=== PATIENT | female | born 1980 | race Caucasian/White ===

== ENCOUNTER 2017-05-16 00:19 | Emergency (ER) | payer OTHER ==
[2017-05-16 00:25] VITALS: RESP 18
[2017-05-16] MEDS ORDERED: IPRATROPIUM-ALBUTEROL 3 ML NEB INHALATION STA (00:38)
--- NOTE | 2017-05-16 00:59 | ED ---
URI HPI - General Chief Complaint: Upper Respiratory Infection Stated Complaint: sore throat Time Seen by Provider: 05/16/17 00:28 Source: patient Mode of arrival: ambulatory Limitations: no limitations - History of Present Illness Initial Comments: Patient is a 36-year-old female presenting to the emergency department with chief complaint of sore throat 4 days. MD Complaint: sore throat Onset/Timin -: days(s) Severity: moderate Severity scale (1-10): 6 Quality: sharp Consistency: intermittent Improves With: nothing Worsens With: nothing Context: other (Recent yard work) Associated Symptoms: headache, nasal congestion, cough, hoarseness Treatments Prior to Arrival: "cold medicine" - Related Data Previous Rx's Medication Instructions Recorded Amoxic-Pot Clav 875-125Mg 1 tab PO Q12HR #20 tablet 05/16/17 [Augmentin 875-125] Fluticasone Nasal [place] [Flonase 2 spr EA NOSTRIL DAILY #1 bottle 05/16/17 Nasal [place]] Oxymetazoline 0.05% Nasl [place] 2 spray EA NOSTRIL BID #1 bottle 05/16/17 [Afrin 0.05% Nasal [place]] Allergies Allergy/AdvReac Type Severity Reaction Status Date / Time latex Allergy Itching Verified 05/16/17 00:25 Review of Systems ROS Statement: Those systems with pertinent positive or pertinent negative responses have been documented in the HPI. ROS Other: All systems not noted in ROS Statement are negative. Past Medical History Additional Past Medical History / Comment(s): anemia History of Any Multi-Drug Resistant Organisms: None Reported Past Surgical History: Joint Replacement Past Psychological History: No Psychological Hx Reported Smoking Status: Former smoker Past Alcohol Use History: Occasional Past Drug Use History: None Reported General Exam Limitations: no limitations General appearance: alert, in no apparent distress Head exam: Present: atraumatic, normocephalic, normal inspection Eye exam: Present: normal appearance, PERRL, EOMI. Absent: scleral icterus, conjunctival injection, nystagmus, periorbital swelling, periorbital tenderness ENT exam: Present: mucous membranes moist, TM's normal bilaterally, normal external ear exam. Absent: normal oropharynx (Slightly erythematous posterior pharynx) Neck exam: Present: normal inspection, full ROM. Absent: tenderness, lymphadenopathy Respiratory exam: Present: normal lung sounds bilaterally. Absent: respiratory distress, wheezes, rales, rhonchi, stridor, decreased breath sounds Cardiovascular Exam: Present: regular rate, normal rhythm, normal heart sounds. Absent: systolic murmur GI/Abdominal exam: Present: soft, normal bowel sounds. Absent: distended, tenderness, guarding, rebound, rigid Extremities exam: Present: normal inspection, full ROM, normal capillary refill , calf tenderness. Absent: tenderness, pedal edema, joint swelling Back exam: Present: normal inspection. Absent: tenderness, paraspinal tenderness, vertebral tenderness Neurological exam: Present: alert, oriented X3, CN II-XII intact, normal gait, other (No focal deficits noted) Psychiatric exam: Present: normal affect, normal mood Skin exam: Present: warm, dry, intact, normal color Course Vital Signs 05/16/17 05/16/17 05/16/17 00:23 00:57 01:05 Temperature 97.1 F L Pulse Rate 99 99 99 Respiratory 18 Rate Blood Pressure 126/86 O2 Sat by Pulse 97 Oximetry Medical Decision Making - Medical Decision Making Cough congestion sore throat suspect secondary to acute rhinosinusitis. Chest x -ray with concern for left lower lobe pneumonia interpreted by me, official result pending. Patient provided with prescription for Augmentin, decongestant , and nasal steroid spray. Strep screen negative. Patient felt stable for discharge to home and encouraged to establish family physician for follow-up care. Patient agrees with treatment plan. Return parameters and discharge instructions reviewed. - Lab Data Lab Results 05/16/17 Range/Units 00:34 Group A Strep Rapid Negative (Negative) Disposition Clinical Impression: Acute rhinosinusitis Disposition: HOME SELF-CARE Condition: Good Instructions: Rhinosinusitis (ED) Additional Instructions: Continue antibiotics as prescribed for 10 days. Continue Afrin nasal spray 2 times daily for up to 5 days. Continue Flonase 2 sprays to each nostril daily for 1 month. Use humidifier in the bedroom, warm compresses to the face, and steam inhalation. Use nasal saline spray frequently 8-10 times a day or [place] 2-3 times a day. Increase oral fluids. If symptoms do not resolve after 3- 4 weeks consider following up with ENT specialist. Please return to the emergency department if symptoms do not improve or get worse in next 48-72 hours. Prescriptions: Amoxic-Pot Clav 875-125Mg [Augmentin 875-125] 1 tab PO Q12HR #20 tablet Fluticasone Nasal [place] [Flonase Nasal [place]] 2 spr EA NOSTRIL DAILY #1 bottle Oxymetazoline 0.05% Nasl [place] [Afrin 0.05% Nasal [place]] 2 spray EA NOSTRIL BID #1 bottle Referrals: None,Stated [Primary Care Provider] - 1-2 days Time of Disposition: 01:37
[2017-05-16] MEDS ORDERED: ACETAMINOPHEN TAB 325 MG TAB PO STA (01:00)
[2017-05-16] MEDS ORDERED: AMOXIC-POT CLAV 875MG STARTER 2 EACH TABLET PO STA (01:36)
[2017-05-16 01:44] VITALS: BP 132/71; PULSE 84; TEMP 97.7
--- NOTE | 2017-05-16 02:05 | XR ---
History: Reason: Pain Exam: XR CXR 2 VIEWS Comparison: 10/27/2014 FINDINGS: The lungs are clear. The cardiac and mediastinal contours are within limits. Mild rightward curvature of the thoracic spine again noted. IMPRESSION: No evidence of acute disease.
== END 2017-05-16 01:44 | disposition home or self-care (01) ==
LOC: EC 00:19
DX: J01.90 Acute sinusitis, unspecified (principal); Z87.891 Personal history of nicotine dependence; Z91.040 Latex allergy status
CPT/HCPCS: 71020; 87081; 87430; 94640; 99284

== ENCOUNTER 2017-08-11 22:53 | Emergency (ER) | payer OTHER ==
[2017-08-11 23:04] VITALS: BP 124/90; PULSE 80; RESP 20; TEMP 98.3
--- NOTE | 2017-08-11 23:17 | ED ---
Extremity Problem HPI - General Chief complaint: Extremity Problem,Nontraumatic Stated complaint: Edema in legs Time Seen by Provider: 08/11/17 23:10 Source: patient, RN notes reviewed Mode of arrival: ambulatory Limitations: no limitations - History of Present Illness Initial comments: This a 36-year-old female presents emergency Department with chief complaint of bilateral lower external swelling for several weeks. Patient states that she's been trying to get into her primary care physician though she has been unable to. Patient states that her headaches are a little achy from the swelling. She states that it better if she elevates. Patient denies any chest pain. She states that she did have some shortness of breath other day shortness of breath. patient has fever, chills, headache, dizziness. patient has a benign past medical history a she's not having her regular lab work and several years. patient has no cardiac history has no known renal disease. patient states she does stand for long periods of time throughout the day which makes his symptoms worse. - Related Data Previous Rx's Medication Instructions Recorded Amoxic-Pot Clav 875-125Mg 1 tab PO Q12HR #20 tablet 05/16/17 [Augmentin 875-125] Fluticasone Nasal [place] [Flonase 2 spr EA NOSTRIL DAILY #1 bottle 05/16/17 Nasal [place]] Oxymetazoline 0.05% Nasl [place] 2 spray EA NOSTRIL BID #1 bottle 05/16/17 [Afrin 0.05% Nasal [place]] Sulfamethox-Tmp 800-160Mg [Bactrim 1 each PO Q12HR #10 tab 08/12/17 Ds] Allergies Allergy/AdvReac Type Severity Reaction Status Date / Time latex Allergy Itching Verified 05/16/17 00:25 Review of Systems ROS Statement: Those systems with pertinent positive or pertinent negative responses have been documented in the HPI. ROS Other: All systems not noted in ROS Statement are negative. Past Medical History Additional Past Medical History / Comment(s): anemia History of Any Multi-Drug Resistant Organisms: None Reported Past Surgical History: Joint Replacement Past Psychological History: No Psychological Hx Reported Smoking Status: Former smoker Past Alcohol Use History: Occasional Past Drug Use History: None Reported General Exam Limitations: no limitations General appearance: alert, in no apparent distress Respiratory exam: Present: normal lung sounds bilaterally. Absent: respiratory distress, wheezes, rales, rhonchi, stridor Cardiovascular Exam: Present: regular rate, normal rhythm, normal heart sounds. Absent: systolic murmur, diastolic murmur, rubs, gallop, clicks GI/Abdominal exam: Present: soft, normal bowel sounds. Absent: distended, tenderness, guarding, rebound, rigid Extremities exam: Present: pedal edema (Bilateral), other (Bilateral lower extremity strength equal bilaterally neurovascular intact there is no calf tenderness there is no erythema no warmth) Neurological exam: Present: reflexes normal. Absent: motor sensory deficit Psychiatric exam: Present: normal affect, normal mood Skin exam: Present: warm, dry, intact, normal color. Absent: rash Course Vital Signs 08/11/17 23:00 Temperature 98.3 F Pulse Rate 80 Respiratory 20 Rate Blood Pressure 124/90 O2 Sat by Pulse 98 Oximetry Medical Decision Making - Medical Decision Making 36-year-old female presented emergency from for lower extremity edema. Patient lab work essentially unremarkable. Patient's x-ray shows possible pulmonary edema though BNP is 76. Patient d-dimer is negative motorcycle to be any evidence of embolism. Patient will be given a dose of Lasix follow-up with defect rep[employer] for possible echo and further workup. - Lab Data Result diagrams: 08/11/17 23:25 08/11/17 23:25 Lab Results 08/11/17 08/11/17 08/11/17 Range/Units 23:25 23:25 23:25 WBC 10.3 (3.8-10.6) k/uL RBC 4.51 (3.80-5.40) m/uL Hgb 13.6 (11.4-16.0) gm/dL Hct 40.0 (34.0-46.0) % MCV 88.7 (80.0-100.0) fL MCH 30.1 (25.0-35.0) pg MCHC 33.9 (31.0-37.0) g/dL RDW 13.2 (11.5-15.5) % Plt Count 285 (150-450) k/uL Neutrophils % 64 % Lymphocytes % 25 % Monocytes % 5 % Eosinophils % 2 % Basophils % 1 % Neutrophils # 6.6 (1.3-7.7) k/uL Lymphocytes # 2.6 (1.0-4.8) k/uL Monocytes # 0.6 (0-1.0) k/uL Eosinophils # 0.3 (0-0.7) k/uL Basophils # 0.1 (0-0.2) k/uL D-Dimer (<0.60) mg/L FEU Sodium 139 (137-145) mmol/L Potassium 4.2 (3.5-5.1) mmol/L Chloride 108 H (98-107) mmol/L Carbon Dioxide 20 L (22-30) mmol/L Anion Gap 11 mmol/L BUN 12 (7-17) mg/dL Creatinine 0.80 (0.52-1.04) mg/dL Est GFR (MDRD) Af Amer >60 (>60 ml/min/1.73 sqM) Est GFR (MDRD) Non-Af >60 (>60 ml/min/1.73 sqM) Glucose 93 (74-99) mg/dL Calcium 9.4 (8.4-10.2) mg/dL Total Bilirubin 0.6 (0.2-1.3) mg/dL AST 29 (14-36) U/L ALT 39 (9-52) U/L Alkaline Phosphatase 140 H (38-126) U/L Troponin I (0.000-0.034) ng/mL NT-Pro-B Natriuret Pep 76 pg/mL Total Protein 7.2 (6.3-8.2) g/dL Albumin 4.1 (3.5-5.0) g/dL Urine Color Urine Appearance (Clear) Urine pH (5.0-8.0) Ur Specific [place] (1.001-1.035) Urine Protein (Negative) Urine Glucose (UA) (Negative) Urine Ketones (Negative) Urine Blood (Negative) Urine Nitrite (Negative) Urine Bilirubin (Negative) Urine Urobilinogen (<2.0) mg/dL Ur Leukocyte Esterase (Negative) Urine RBC (0-5) /hpf Urine WBC (0-5) /hpf Ur Squamous Epith Cells (0-4) /hpf Urine Bacteria (None) /hpf Urine Mucus (None) /hpf Urine HCG, Qual (Not Detectd) 08/11/17 08/11/17 08/11/17 Range/Units 23:25 23:25 23:25 WBC (3.8-10.6) k/uL RBC (3.80-5.40) m/uL Hgb (11.4-16.0) gm/dL Hct (34.0-46.0) % MCV (80.0-100.0) fL MCH (25.0-35.0) pg MCHC (31.0-37.0) g/dL RDW (11.5-15.5) % Plt Count (150-450) k/uL Neutrophils % % Lymphocytes % % Monocytes % % Eosinophils % % Basophils % % Neutrophils # (1.3-7.7) k/uL Lymphocytes # (1.0-4.8) k/uL Monocytes # (0-1.0) k/uL Eosinophils # (0-0.7) k/uL Basophils # (0-0.2) k/uL D-Dimer (<0.60) mg/L FEU Sodium (137-145) mmol/L Potassium (3.5-5.1) mmol/L Chloride (98-107) mmol/L Carbon Dioxide (22-30) mmol/L Anion Gap mmol/L BUN (7-17) mg/dL Creatinine (0.52-1.04) mg/dL Est GFR (MDRD) Af Amer (>60 ml/min/1.73 sqM) Est GFR (MDRD) Non-Af (>60 ml/min/1.73 sqM) Glucose (74-99) mg/dL Calcium (8.4-10.2) mg/dL Total Bilirubin (0.2-1.3) mg/dL AST (14-36) U/L ALT (9-52) U/L Alkaline Phosphatase (38-126) U/L Troponin I <0.012 (0.000-0.034) ng/mL NT-Pro-B Natriuret Pep pg/mL Total Protein (6.3-8.2) g/dL Albumin (3.5-5.0) g/dL Urine Color Yellow Urine Appearance Cloudy H (Clear) Urine pH 6.0 (5.0-8.0) Ur Specific [place] 1.020 (1.001-1.035) Urine Protein Trace H (Negative) Urine Glucose (UA) Negative (Negative) Urine Ketones Negative (Negative) Urine Blood Negative (Negative) Urine Nitrite Negative (Negative) Urine Bilirubin Negative (Negative) Urine Urobilinogen <2.0 (<2.0) mg/dL Ur Leukocyte Esterase Moderate H (Negative) Urine RBC 2 (0-5) /hpf Urine WBC 16 H (0-5) /hpf Ur Squamous Epith Cells 7 H (0-4) /hpf Urine Bacteria Moderate H (None) /hpf Urine Mucus Rare H (None) /hpf Urine HCG, Qual Not Detected (Not Detectd) 08/11/17 Range/Units 23:25 WBC (3.8-10.6) k/uL RBC (3.80-5.40) m/uL Hgb (11.4-16.0) gm/dL Hct (34.0-46.0) % MCV (80.0-100.0) fL MCH (25.0-35.0) pg MCHC (31.0-37.0) g/dL RDW (11.5-15.5) % Plt Count (150-450) k/uL Neutrophils % % Lymphocytes % % Monocytes % % Eosinophils % % Basophils % % Neutrophils # (1.3-7.7) k/uL Lymphocytes # (1.0-4.8) k/uL Monocytes # (0-1.0) k/uL Eosinophils # (0-0.7) k/uL Basophils # (0-0.2) k/uL D-Dimer 0.21 (<0.60) mg/L FEU Sodium (137-145) mmol/L Potassium (3.5-5.1) mmol/L Chloride (98-107) mmol/L Carbon Dioxide (22-30) mmol/L Anion Gap mmol/L BUN (7-17) mg/dL Creatinine (0.52-1.04) mg/dL Est GFR (MDRD) Af Amer (>60 ml/min/1.73 sqM) Est GFR (MDRD) Non-Af (>60 ml/min/1.73 sqM) Glucose (74-99) mg/dL Calcium (8.4-10.2) mg/dL Total Bilirubin (0.2-1.3) mg/dL AST (14-36) U/L ALT (9-52) U/L Alkaline Phosphatase (38-126) U/L Troponin I (0.000-0.034) ng/mL NT-Pro-B Natriuret Pep pg/mL Total Protein (6.3-8.2) g/dL Albumin (3.5-5.0) g/dL Urine Color Urine Appearance (Clear) Urine pH (5.0-8.0) Ur Specific [place] (1.001-1.035) Urine Protein (Negative) Urine Glucose (UA) (Negative) Urine Ketones (Negative) Urine Blood (Negative) Urine Nitrite (Negative) Urine Bilirubin (Negative) Urine Urobilinogen (<2.0) mg/dL Ur Leukocyte Esterase (Negative) Urine RBC (0-5) /hpf Urine WBC (0-5) /hpf Ur Squamous Epith Cells (0-4) /hpf Urine Bacteria (None) /hpf Urine Mucus (None) /hpf Urine HCG, Qual (Not Detectd) 08/12/17 00:23 EKG performed at 0:11 normal sinus rhythm with a rate of 61 OR interval 154 QRS duration 84 QT/QTC 426/428 Disposition Clinical Impression: Lower extremity edema, UTI (urinary tract infection) Disposition: HOME SELF-CARE Condition: Stable Instructions: Leg Edema (ED) Additional Instructions: Please return to the Emergency Department if symptoms worsen or any other concerns. Prescriptions: Sulfamethox-Tmp 800-160Mg [Bactrim Ds] 1 each PO Q12HR #10 tab Referrals: None,Stated [Primary Care Provider] - 1-2 days Venita Rivera MD [STAFF PHYSICIAN] - 1-2 days Time of Disposition: 00:25
[2017-08-11 23:36] LABS: Basophils # (A) 0.1 k/uL (0-0.2); Basophils % (A) 1 %; CH 30.1; CHCM 34.1; Eosinophils # (A) 0.3 k/uL (0-0.7); Eosinophils % (A) 2 %; HDW 2.62; HGB 13.6 gm/dL (11.4-16.0); Luc # (Auto) 0.22; Luc % (Auto) 2; Lymphocytes # (A) 2.6 k/uL (1.0-4.8); Lymphocytes % (A) 25 %; MCH 30.1 pg (25.0-35.0); MCHC 33.9 g/dL (31.0-37.0); MCV 88.7 fL (80.0-100.0); Mean Platelet Volume 6.6; Monocytes # (A) 0.6 k/uL (0-1.0); Monocytes % (A) 5 %; Neutrophils # (A) 6.6 k/uL (1.3-7.7); Neutrophils % (A) 64 %; RBC 4.51 m/uL (3.80-5.40); RDW 13.2 % (11.5-15.5); WBC 10.3 k/uL (3.8-10.6); WBC (Perox) 10.19
[2017-08-11 23:45] LABS: Appearance,Urine Cloudy (Clear); Bacteria,Urine Moderate /hpf; Bilirubin,Urine Negative (Negative); Glucose,Urine (UA) Negative (Negative); Ketones,Urine Negative (Negative); Leukocyte Esterase,Urine Moderate (Negative); Mucus,Urine Rare /hpf; Nitrite,Urine Negative (Negative); Particle Count 8673; Protein,Urine Trace (Negative); RBC,Urine 2 /hpf (0-5); Squamous Epithelial Cell,Urine 7 /hpf (0-4); UA Billing (MACRO vs. MICRO) MICRO; Urobilinogen,Urine <2.0 mg/dL (<2.0); WBC,Urine 16 /hpf (0-5)
[2017-08-11 23:46] LABS: ALT 39 U/L (9-52); AST 29 U/L (14-36); Alkaline Phosphatase 140 U/L (38-126); Anion Gap 11 mmol/L; Blood Urea Nitrogen 12 mg/dL (7-17); Calcium 9.4 mg/dL (8.4-10.2); Carbon Dioxide 20 mmol/L (22-30); Chloride 108 mmol/L (98-107); Glucose 93 mg/dL (74-99); Non-African American GFR(MDRD) >60 (>60 ml/min/1.73 sqM); Potassium 4.2 mmol/L (3.5-5.1); Sodium 139 mmol/L (137-145); Total Bilirubin 0.6 mg/dL (0.2-1.3); Total Protein 7.2 g/dL (6.3-8.2)
--- NOTE | 2017-08-11 23:55 | XR ---
EXAM: XR Chest, 2 Views CLINICAL HISTORY: Reason: Pain TECHNIQUE: Frontal and lateral views of the chest. COMPARISON: 05/16/2017. FINDINGS: Lungs: Hazy prominence of the pulmonary interstitial is seen with peribronchial cuffing, suggesting mild pulmonary edema. Alternatively, peribronchial cuffing can be seen in small airways inflammatory disease. Bibasilar atelectasis and/or infiltrates also seen, most notable on the lateral view. Pleural space: Unremarkable. No pneumothorax. Heart: Unremarkable. No cardiomegaly. Mediastinum: Unremarkable. Bones/joints: Unchanged. IMPRESSION: 1. Hazy prominence of the pulmonary interstitial markings with mild peribronchial cuffing, suggesting mild pulmonary edema. Alternatively, peribronchial cuffing can be seen in small airways inflammatory disease. 2. Bibasilar atelectasis and/or infiltrates, most notable on the lateral view.
[2017-08-12] MEDS ORDERED: SULFAMETHOX-TMP 800-160MG 1 EACH TAB PO STA (00:22)
[2017-08-12] MEDS ORDERED: FUROSEMIDE 10 MG/ML 4 ML VIAL IV STA (00:22)
== END 2017-08-12 00:49 | disposition home or self-care (01) ==
LOC: EC 22:53
DX: R60.0 Localized edema (principal); N39.0 Urinary tract infection, site not specified; R06.02 Shortness of breath; R51 Headache; R50.9 Fever, unspecified; R42 Dizziness and giddiness; Z87.891 Personal history of nicotine dependence; Z91.040 Latex allergy status
CPT/HCPCS: 36415; 93005; 85379; 83880; 80053; 84484; 85025; 81001; 81025; 71020; 99284; 96374; J1940

== ENCOUNTER → 2017-08-13 | Outpatient (CLI) | payer OTHER | END | disposition home or self-care (01) | LOC: LABWHC1 08:57 | PROVIDERS: ATTEND Nurse Practitioner Adult Health | DX: R60.0 Localized edema (principal) | CPT/HCPCS: 36415; 84443 ==

== ENCOUNTER → 2017-09-16 | Outpatient (CLI) | payer OTHER | END | disposition home or self-care (01) | LOC: LABWHC1 11:45 | PROVIDERS: ATTEND Internal Medicine Cardiovascular Disease | DX: R60.0 Localized edema (principal) | CPT/HCPCS: 36415; 82040 ==

== ENCOUNTER → 2017-10-02 | Outpatient (CLI) | payer OTHER ==
--- NOTE | 2017-10-02 13:04 | US ---
EXAMINATION TYPE: US pelvic complete DATE OF EXAM: 10/02/2017 COMPARISON: NONE CLINICAL HISTORY: R60.0 localized edema. Left ovary removed in 2014. [employer] performed in 2014. No pain or discomfort. No periods. Patient did not want transvaginal ultrasound performed. TECHNIQUE: Transabdominal (TA) Date of LMP: No periods, EXAM MEASUREMENTS: Uterus: 7.8 x 4.5 x 3.8 cm Endometrial Stripe: 5.0 cm Right Ovary: 3.3 x 3.3 x 2.7 cm Left Ovary: Surgically absent 1. Uterus: Anteverted wnl as visualized 2. Endometrium: wnl 3. Right Ovary: septated cyst = 2.7 x 2.7 x 2.5 cm 4. Left Ovary: Surgically absent Color doppler imaging shows good vascular flow within the right ovary; 5. Bilateral Adnexa: wnl 6. Posterior cul-de-sac: no free fluid A 2.7 cm cyst in right ovary has thin septation. Exam is slightly suboptimal as patient refused trans vaginal ultrasound further evaluate this lesion. IMPRESSION: A 2.7 cm thin septated cyst in right ovary is seen otherwise unremarkable study on transa bdominal pelvic ultrasound investigation.
--- NOTE | 2017-10-02 13:06 | US ---
EXAMINATION TYPE: US abdomen complete DATE OF EXAM: 10/02/2017 COMPARISON: NONE CLINICAL HISTORY: R60.0 localized edema. Patient states bilateral leg edema. Left sided pain. EXAM MEASUREMENTS: Liver Length: 15.9 cm Gallbladder Wall: 0.2 cm CHD: 0.3 cm Spleen: 11.6 cm Right Kidney: 11.9 x 4.1 x 3.9 cm Left Kidney: 10.8 x 4.8 x 5.6 cm Pancreas: Body and tail obscured by overlying bowel gas, appears slightly echogenic Liver: Increased attenuation Gallbladder: Multiple mobile stones seen. Largest = 2.2 cm Evidence for sonographic Graves's sign: neg CHD: wnl Spleen: wnl Right Kidney: wnl Left Kidney: wnl Upper IVC: wnl Abd Aorta: Portions of vessel obscured by overlying bowel gas, limited visualized The visualized liver is heterogeneous hyperechoic. Evaluation for focal masses is suboptimal due to t he heterogeneity. The intrahepatic portion of the IVC and visualized abdominal aorta are within jignesh l limits. There are shadowing mobile gallstones filling gallbladder. No suspicious wall thickening o r adjacent fluid is seen. Common bile duct is unremarkable. The visualized portions of the pancreas are homogenous. Significant portion of body and tail is obscured by overlying bowel gas. The spleen is unremarkable. Kidneys are symmetric and free of hydronephrosis. No renal lesions are seen. IMPRESSION: No ascites is seen. No significant finding is seen to account for patient's symptoms of e flora. Gallstones without secondary ultrasound evidence for acute cholecystitis. Probable fatty infilt ration of liver is noted.
== END | disposition home or self-care (01) ==
LOC: RADUSWWP 08:53
PROVIDERS: ATTEND Family Medicine
DX: N83.201 Unspecified ovarian cyst, right side (principal); K80.20 Calculus of gallbladder without cholecystitis without obstruction
CPT/HCPCS: 76700; 76856

== ENCOUNTER → 2018-06-29 | Outpatient (CLI) | payer OTHER ==
[2018-06-29 12:08] LABS: Anion Gap 9 mmol/L; Blood Urea Nitrogen 11 mg/dL (7-17); Carbon Dioxide 29 mmol/L (22-30); Chloride 103 mmol/L (98-107); Potassium 4.4 mmol/L (3.5-5.1); Sodium 141 mmol/L (137-145)
== END | disposition home or self-care (01) ==
LOC: LABWHC1 11:18
PROVIDERS: ATTEND Internal Medicine Cardiovascular Disease
DX: R60.0 Localized edema (principal)
CPT/HCPCS: 36415; 80051; 82565; 84520

== ENCOUNTER → 2018-12-04 | Outpatient (CLI) | payer OTHER ==
--- NOTE | 2018-12-04 16:15 | US ---
EXAMINATION TYPE: US kidneys/renal and bladder DATE OF EXAM: 12/04/2018 COMPARISON: NONE CLINICAL HISTORY: R80.9 Proteinuria. EXAM MEASUREMENTS: Right Kidney: 10.6 x 4.8 x 5.2 cm Left Kidney: 10.8 x 5.5 x 4.5 cm Post Void Residual Volume: 17.6 mL Right Kidney: No hydronephrosis or masses seen Left Kidney: No hydronephrosis or masses seen Bladder: wnl Bilateral Jets seen: Yes Normal Post Void Residual: Yes There is no evidence for hydronephrosis at this point in time. No nephrolithiasis is seen. No esteban s are identified. The urinary bladder is anechoic. Bilateral ureteral jets are seen. No ascites. Cortical medullary differentiation is maintained. IMPRESSION: Renal sizes as described.
== END ==
LOC: RADUSWWP 15:43
PROVIDERS: ATTEND Family Medicine
DX: R80.9 Proteinuria, unspecified (principal)
CPT/HCPCS: 76770

== ENCOUNTER 2018-12-05 23:37 | Emergency (ER) | payer OTHER ==
[2018-12-05 23:48] VITALS: RESP 18
--- NOTE | 2018-12-06 00:45 | ED ---
General Adult HPI - General Source: patient, RN notes reviewed Mode of arrival: ambulatory Limitations: no limitations <Sidney Coronel - Last Filed: 12/06/18 01:22> <Bucky Harvey - Last Filed: 12/06/18 02:12> - General Chief complaint: Recheck/Abnormal Lab/Rx Stated complaint: dizziness Time Seen by Provider: 12/05/18 23:58 - History of Present Illness Initial comments: Chief complaint and history of present illness is a 38-year-old female with several complaints. The patient reports she was started on Celexa for anxiety. She took her first pill yesterday and felt funny because of it to the second pill today and again felt funny. She did discuss this mentioned it to a friend of hers who states she felt like she was spinning. The patient also reports she 's had several incidents in her life recently causing her to be depressed. The patient does want to speak to the psych nurse. The patient denies suicidal thoughts though. (Sidney Coronel) - Related Data Previous Rx's Medication Instructions Recorded Amoxic-Pot Clav 875-125Mg 1 tab PO Q12HR #20 tablet 05/16/17 [Augmentin 875-125] Fluticasone Nasal [place] [Flonase 2 spr EA NOSTRIL DAILY #1 bottle 05/16/17 Nasal [place]] Oxymetazoline 0.05% Nasl [place] 2 spray EA NOSTRIL BID #1 bottle 05/16/17 [Afrin 0.05% Nasal [place]] Sulfamethox-Tmp 800-160Mg [Bactrim 1 each PO Q12HR #10 tab 08/12/17 Ds] Allergies Allergy/AdvReac Type Severity Reaction Status Date / Time latex Allergy Itching Verified 12/05/18 23:48 Review of Systems ROS Other: All systems not noted in ROS Statement are negative. <Sidney Coronel - Last Filed: 12/06/18 01:22> ROS Other: All systems not noted in ROS Statement are negative. <Bucky Harvey - Last Filed: 12/06/18 02:12> ROS Statement: Those systems with pertinent positive or pertinent negative responses have been documented in the HPI. Review of systems. Patient denies any headache or visual acuity changes. Denies chest pain shortness breath GI/ problems. Gen. complaint on the medications that she is feeling extremely weird, her friend stated she was talking funny. Patient denies any other drugs. Denies any previous antipsychotic medications taken in the past several weeks. Currently no neuro deficits. All systems are reviewed. The patient's past medical processing significant for heart failure she has had a workup including echocardiogram with the pad machine feeder. The patient's other problems include having had a fall on her right knee resulting in injury to the patella eventually necessitating a partial joint replacement. She quit smoking 4 years ago drinks alcohol rarely socially. Denies ALLERGIES to medications states she hasn't adverse reaction to latex. Medications currently being taken or Lasix and potassium. (Sidney Coronel) Past Medical History Past Medical History: Heart Failure Additional Past Medical History / Comment(s): anemia History of Any Multi-Drug Resistant Organisms: None Reported Past Surgical History: Joint Replacement Additional Past Surgical History / Comment(s): right knee Past Psychological History: Anxiety Smoking Status: Former smoker Past Alcohol Use History: Occasional Past Drug Use History: Cocaine <Sidney Coronel - Last Filed: 12/06/18 01:22> General Exam Limitations: no limitations <Sidney Coronel - Last Filed: 12/06/18 01:22> <Bucky Harvey - Last Filed: 12/06/18 02:12> - General Exam Comments Initial Comments: General: The patient is awake and alert, in no distress, and does not appear acutely ill. Complains of an appears to be depressed. Cries when she speaks of recurrent situation and economic problems. Denied any specific plan. Vital signs shows a temperature 97.7 pulse 79 respiratory rate 18 pulse ox 97% room air blood pressure 108/76 Eye: Pupils are equal, extra-ocular movements are intact; there is normal conjunctiva bilaterally. No signs of icterus. Ears, nose, mouth and throat: There are moist mucous membranes Neck: The neck is supple, there is no tenderness Cardiovascular: There is a regular rate and rhythm. No murmur, rub or gallop is appreciated. Respiratory: Lungs are clear to auscultation, respirations are non-labored, breath sounds are equal. No wheezes, stridor, rales, or rhonchi. Gastrointestinal: Denies nausea vomiting or diarrhea. Denies any abdominal discomfort. Back: There is no tenderness to palpation in the midline. Musculoskeletal: Normal ROM, no tenderness, There is no pedal edema. There is no calf tenderness or swelling. Sensation intact. Neurological: CN II-XII intact, There are no obvious motor or sensory deficits. Coordination appears grossly intact. Speech is normal. Eyes any neuro deficits at this time. Skin: Skin is warm and dry and no rashes or lesions are noted. Psychiatric: Cooperative, depressed, crying wants to speak to a psych nurse. (Sidney Coronel) Vital Signs 12/05/18 23:43 Temperature 97.7 F Pulse Rate 79 Respiratory 18 Rate Blood Pressure 108/76 O2 Sat by Pulse 97 Oximetry EKG Findings - EKG Comments: EKG Findings:: EKG was done and reviewed at 0035 showing normal sinus rhythm possible left atrial enlargement no acute ST elevation no ectopy no ischemic changes. Rate is 75 CO interval is 136 QRS is 70 QTc is 370 QTc is 413. <Sidney Coronel - Last Filed: 12/06/18 01:22> Medical Decision Making - Lab Data Result diagrams: 12/06/18 00:51 12/06/18 00:51 <Sidney Coronel - Last Filed: 12/06/18 01:22> - Lab Data Result diagrams: 12/06/18 00:51 12/06/18 00:51 <Bucky Harvey - Last Filed: 12/06/18 02:12> - Medical Decision Making Medical decision making; 38-year-old female reports that she is depressed. States she's feeling extremely irregular after starting Celexa yesterday and today. The patient wants to talk to the psych nurse. The patient's labs show white count of 12 hemoglobin 13 hematocrit 40. Potassium 4.3 with a BUN 13 creatinine 0.79 and GFR greater than 90. Glucose 91. Magnesium normal at 2.1. Calcium normal. We're awaiting the results of the patient's urine test. The patient be evaluated by the psychiatric nurse Patient endorsed to Dr. Harvey for final disposition. (Sidney Coronel) The patient has been seen by behavioral health and cleared to have continued outpatient care. (Bucky Harvey) - Lab Data Lab Results 12/06/18 12/06/18 12/06/18 Range/Units 00:51 00:51 01:26 WBC 12.1 H (3.8-10.6) k/uL RBC 4.50 (3.80-5.40) m/uL Hgb 13.6 (11.4-16.0) gm/dL Hct 40.8 (34.0-46.0) % MCV 90.6 (80.0-100.0) fL MCH 30.3 (25.0-35.0) pg MCHC 33.4 (31.0-37.0) g/dL RDW 13.2 (11.5-15.5) % Plt Count 296 (150-450) k/uL Neutrophils % 71 % Lymphocytes % 19 % Monocytes % 7 % Eosinophils % 1 % Basophils % 1 % Neutrophils # 8.7 H (1.3-7.7) k/uL Lymphocytes # 2.3 (1.0-4.8) k/uL Monocytes # 0.8 (0-1.0) k/uL Eosinophils # 0.1 (0-0.7) k/uL Basophils # 0.1 (0-0.2) k/uL Sodium 140 (137-145) mmol/L Potassium 4.3 (3.5-5.1) mmol/L Chloride 108 H (98-107) mmol/L Carbon Dioxide 25 (22-30) mmol/L Anion Gap 7 mmol/L BUN 13 (7-17) mg/dL Creatinine 0.79 (0.52-1.04) mg/dL Est GFR (CKD-EPI)AfAm >90 (>60 ml/min/1.73 sqM) Est GFR (CKD-EPI)NonAf >90 (>60 ml/min/1.73 sqM) Glucose 91 (74-99) mg/dL Calcium 9.4 (8.4-10.2) mg/dL Magnesium 2.1 (1.6-2.3) mg/dL Urine Opiates Screen Not Detected (NotDetected) Ur Oxycodone Screen Not Detected (NotDetected) Urine Methadone Screen Not Detected (NotDetected) Ur Propoxyphene Screen Not Detected (NotDetected) Ur Barbiturates Screen Not Detected (NotDetected) U Tricyclic Antidepress Not Detected (NotDetected) Ur Phencyclidine Scrn Not Detected (NotDetected) Ur Amphetamines Screen Not Detected (NotDetected) U Methamphetamines Scrn Not Detected (NotDetected) U Benzodiazepines Scrn Not Detected (NotDetected) Urine Cocaine Screen Not Detected (NotDetected) U Marijuana (THC) Screen Not Detected (NotDetected) Disposition <Sidney Coronel - Last Filed: 12/06/18 01:22> Is patient prescribed a controlled substance at d/c from ED?: No <Bucky Harvey - Last Filed: 12/06/18 02:12> Clinical Impression: Anxiety Disposition: HOME SELF-CARE Condition: Fair Instructions: Anxiety (ED) Referrals: Mejia Blanc MD [Primary Care Provider] - 1-2 days
[2018-12-06 01:05] LABS: Basophils # (A) 0.1 k/uL (0-0.2); Basophils % (A) 1 %; Eosinophils # (A) 0.1 k/uL (0-0.7); Eosinophils % (A) 1 %; HCT 40.8 % (34.0-46.0); HGB 13.6 gm/dL (11.4-16.0); Lymphocytes # (A) 2.3 k/uL (1.0-4.8); Lymphocytes % (A) 19 %; MCH 30.3 pg (25.0-35.0); MCHC 33.4 g/dL (31.0-37.0); MCV 90.6 fL (80.0-100.0); Mean Platelet Volume 6.7; Monocytes # (A) 0.8 k/uL (0-1.0); Monocytes % (A) 7 %; Neutrophils # (A) 8.7 k/uL (1.3-7.7); Neutrophils % (A) 71 %; Platelet Count 296 k/uL (150-450); RDW 13.2 % (11.5-15.5); WBC 12.1 k/uL (3.8-10.6)
[2018-12-06 01:12] LABS: Anion Gap 7 mmol/L; Blood Urea Nitrogen 13 mg/dL (7-17); Calcium 9.4 mg/dL (8.4-10.2); Carbon Dioxide 25 mmol/L (22-30); Chloride 108 mmol/L (98-107); Glucose 91 mg/dL (74-99); Magnesium 2.1 mg/dL (1.6-2.3); Potassium 4.3 mmol/L (3.5-5.1); Sodium 140 mmol/L (137-145)
[2018-12-06 01:57] LABS: Amphetamine Screen,Urine Not Detected (NotDetected); Barbiturate Screen,Urine Not Detected (NotDetected); Benzodiazepines Screen,Urine Not Detected (NotDetected); Cocaine Screen,Urine Not Detected (NotDetected); Methadone Screen, Urine Not Detected (NotDetected); Opiate Screen,Urine Not Detected (NotDetected); Oxycodone Screen, Urine Not Detected (NotDetected); Phencyclidine Screen,Urine Not Detected (NotDetected); Tricyclic Antidepressant,Urine Not Detected (NotDetected); Urn Cannabinoid Scrn Not Detected (NotDetected)
[2018-12-06 02:33] VITALS: BP 107/60; PULSE 62; TEMP 98.4
== END 2018-12-06 02:32 | disposition home or self-care (01) ==
LOC: EC 23:37
DX: F41.9 Anxiety disorder, unspecified (principal); F32.9 Major depressive disorder, single episode, unspecified; R42 Dizziness and giddiness; Z96.89 Presence of other specified functional implants; Z87.891 Personal history of nicotine dependence; Z91.040 Latex allergy status
CPT/HCPCS: 36415; 80048; 80306; 83735; 85025; 99284

== ENCOUNTER 2019-02-11 17:43 | Emergency (ER) | payer OTHER ==
[2019-02-11 18:03] VITALS: TEMP 98.3
[2019-02-11] MEDS ORDERED: SODIUM CHLORIDE 0.9% 1,000 ML IV STA (18:25)
[2019-02-11] MEDS ORDERED: SODIUM CHLORIDE 0.9% 500 ML 500 ML IV STA (18:25)
--- NOTE | 2019-02-11 18:36 | ED ---
Nausea/Vomiting/Diarrhea HPI - General Chief complaint: Nausea/Vomiting/Diarrhea Stated complaint: diarrhea Time Seen by Provider: 02/11/19 18:09 Source: patient Mode of arrival: ambulatory Limitations: no limitations - History of Present Illness Initial comments: 38-year-old female patient presents to the emergency department today for evaluation of diarrhea. Patient states that she has been having diarrhea for the last 3 days. Patient states that it is watery and ascitic. States that she has episodes every 15-20 minutes. Patient states she does have abdominal cramping with this. States that she has been nauseated, unable to eat, and has vomited twice. States that she has had fever, chills and sweats with this. Patient denies any recent travel, ingestion of questionable foods or water sources, or sick contacts. States that she did complete a two-week course of doxycycline approximately 6 weeks ago for an elevated white blood cell count with no specific source of infection. Patient denies any hematochezia or melena with this. States she has been taking Imodium and Pepto-Bismol which has not been helping. Patient denies any recent rash, shortness breath, chest pain, back pain, numbness, tingling, dizziness, weakness, hematuria, dysuria, urinary urgency, urinary frequency, headache, visual changes, or any other complaints. Patient states that she did see her primary care physician a couple of days ago and had labs performed. States that she was told she has elevated creatinine and she is concerned for dehydration. - Related Data Home Medications Medication Instructions Recorded Confirmed Ergocalciferol (Vitamin D2) 50,000 unit PO FR 02/11/19 02/11/19 [Drisdol] Furosemide [Lasix] 40 mg PO DAILY 02/11/19 02/11/19 Potassium Chloride ER [K-Dur 20] 20 meq PO DAILY 02/11/19 02/11/19 Previous Rx's Medication Instructions Recorded Diphenoxylate HCl/Atropine 1 - 2 tab PO QID PRN 3 Days #24 tab 02/11/19 [Lomotil 2.5-0.025 mg Tablet] Allergies Allergy/AdvReac Type Severity Reaction Status Date / Time latex Allergy Itching Verified 02/11/19 18:48 citalopram [From Celexa] AdvReac Confusion Verified 02/11/19 18:48 Review of Systems ROS Statement: Those systems with pertinent positive or pertinent negative responses have been documented in the HPI. ROS Other: All systems not noted in ROS Statement are negative. Past Medical History Past Medical History: Heart Failure, Sleep Apnea/CPAP/BIPAP Additional Past Medical History / Comment(s): anemia History of Any Multi-Drug Resistant Organisms: None Reported Past Surgical History: Joint Replacement Additional Past Surgical History / Comment(s): right knee Past Psychological History: Anxiety Smoking Status: Former smoker Past Alcohol Use History: Occasional Past Drug Use History: None Reported General Exam Limitations: no limitations General appearance: alert, in no apparent distress, other (This is a well- developed, well-nourished adult female patient in no acute distress. Vital signs upon presentation are temperature 98.3F, pulse 92, respirations 18, blood pressure 107/70, pulse ox 96% on room air.) Eye exam: Present: normal appearance, PERRL, EOMI. Absent: scleral icterus, conjunctival injection, periorbital swelling ENT exam: Present: normal exam, normal oropharynx, mucous membranes moist Respiratory exam: Present: normal lung sounds bilaterally. Absent: respiratory distress, wheezes, rales, rhonchi, stridor Cardiovascular Exam: Present: regular rate, normal rhythm, normal heart sounds. Absent: systolic murmur, diastolic murmur, rubs, gallop, clicks GI/Abdominal exam: Present: soft, normal bowel sounds. Absent: distended, tenderness, guarding, rebound, rigid Neurological exam: Present: alert, oriented X3, CN II-XII intact Psychiatric exam: Present: normal affect, normal mood Skin exam: Present: warm, dry, intact, normal color. Absent: rash Course Vital Signs 02/11/19 02/11/19 17:59 20:26 Temperature 98.3 F Pulse Rate 92 78 Respiratory 18 16 Rate Blood Pressure 107/70 108/60 O2 Sat by Pulse 96 98 Oximetry Medical Decision Making - Medical Decision Making 38-year-old female patient presented to the emergency department today for evaluation of diarrhea 3 days. She denies any hematochezia or melena. Physical examination revealed a soft nontender abdomen. Labs reviewed and are unremarkable. There is no evidence of dehydration. C. diff was negative. We did give Lomotil here in the emergency department. She'll be discharged home at this time to increase fluids to clear liquid diet and advance as tolerated. She is instructed to follow-up with her primary care physician for recheck in 1-2 days. Return parameters were discussed in detail. She verbalizes understanding and agrees with this plan. - Lab Data Result diagrams: 02/11/19 19:20 02/11/19 19:20 Lab Results 02/11/19 02/11/19 02/11/19 Range/Units 18:44 19:20 19:20 WBC 7.3 (3.8-10.6) k/uL RBC 4.19 (3.80-5.40) m/uL Hgb 12.6 (11.4-16.0) gm/dL Hct 38.4 (34.0-46.0) % MCV 91.6 (80.0-100.0) fL MCH 30.1 (25.0-35.0) pg MCHC 32.9 (31.0-37.0) g/dL RDW 12.9 (11.5-15.5) % Plt Count 256 (150-450) k/uL Neutrophils % 67 % Lymphocytes % 21 % Monocytes % 8 % Eosinophils % 1 % Basophils % 0 % Neutrophils # 4.9 (1.3-7.7) k/uL Lymphocytes # 1.5 (1.0-4.8) k/uL Monocytes # 0.6 (0-1.0) k/uL Eosinophils # 0.1 (0-0.7) k/uL Basophils # 0.0 (0-0.2) k/uL Sodium 141 (137-145) mmol/L Potassium 4.1 (3.5-5.1) mmol/L Chloride 108 H (98-107) mmol/L Carbon Dioxide 21 L (22-30) mmol/L Anion Gap 12 mmol/L BUN 15 (7-17) mg/dL Creatinine 1.00 (0.52-1.04) mg/dL Est GFR (CKD-EPI)AfAm 83 (>60 ml/min/1.73 sqM) Est GFR (CKD-EPI)NonAf 72 (>60 ml/min/1.73 sqM) Glucose 82 (74-99) mg/dL Calcium 9.0 (8.4-10.2) mg/dL Total Bilirubin 0.7 (0.2-1.3) mg/dL AST 31 (14-36) U/L ALT 33 (9-52) U/L Alkaline Phosphatase 88 (38-126) U/L Total Protein 7.1 (6.3-8.2) g/dL Albumin 4.3 (3.5-5.0) g/dL Amylase 49 (30-110) U/L Lipase 86 (23-300) U/L Urine Color Urine Appearance (Clear) Urine pH (5.0-8.0) Ur Specific [place] (1.001-1.035) Urine Protein (Negative) Urine Glucose (UA) (Negative) Urine Ketones (Negative) Urine Blood (Negative) Urine Nitrite (Negative) Urine Bilirubin (Negative) Urine Urobilinogen (<2.0) mg/dL Ur Leukocyte Esterase (Negative) Urine RBC (0-5) /hpf Ur Squamous Epith Cells (0-4) /hpf Calcium Oxalate Crystal (None) /hpf Urine Bacteria (None) /hpf Hyaline Casts (0-2) /lpf Urine Mucus (None) /hpf Urine HCG, Qual (Not Detectd) C. difficile (EIA) Intrp Negative (Negative) 02/11/19 02/11/19 Range/Units 19:20 19:20 WBC (3.8-10.6) k/uL RBC (3.80-5.40) m/uL Hgb (11.4-16.0) gm/dL Hct (34.0-46.0) % MCV (80.0-100.0) fL MCH (25.0-35.0) pg MCHC (31.0-37.0) g/dL RDW (11.5-15.5) % Plt Count (150-450) k/uL Neutrophils % % Lymphocytes % % Monocytes % % Eosinophils % % Basophils % % Neutrophils # (1.3-7.7) k/uL Lymphocytes # (1.0-4.8) k/uL Monocytes # (0-1.0) k/uL Eosinophils # (0-0.7) k/uL Basophils # (0-0.2) k/uL Sodium (137-145) mmol/L Potassium (3.5-5.1) mmol/L Chloride (98-107) mmol/L Carbon Dioxide (22-30) mmol/L Anion Gap mmol/L BUN (7-17) mg/dL Creatinine (0.52-1.04) mg/dL Est GFR (CKD-EPI)AfAm (>60 ml/min/1.73 sqM) Est GFR (CKD-EPI)NonAf (>60 ml/min/1.73 sqM) Glucose (74-99) mg/dL Calcium (8.4-10.2) mg/dL Total Bilirubin (0.2-1.3) mg/dL AST (14-36) U/L ALT (9-52) U/L Alkaline Phosphatase (38-126) U/L Total Protein (6.3-8.2) g/dL Albumin (3.5-5.0) g/dL Amylase (30-110) U/L Lipase (23-300) U/L Urine Color Yellow Urine Appearance Cloudy H (Clear) Urine pH 5.5 (5.0-8.0) Ur Specific [place] 1.030 (1.001-1.035) Urine Protein 1+ H (Negative) Urine Glucose (UA) Negative (Negative) Urine Ketones Negative (Negative) Urine Blood Small H (Negative) Urine Nitrite Negative (Negative) Urine Bilirubin Negative (Negative) Urine Urobilinogen <2.0 (<2.0) mg/dL Ur Leukocyte Esterase Negative (Negative) Urine RBC 4 (0-5) /hpf Ur Squamous Epith Cells 2 (0-4) /hpf Calcium Oxalate Crystal Many H (None) /hpf Urine Bacteria Occasional H (None) /hpf Hyaline Casts 3 H (0-2) /lpf Urine Mucus Moderate H (None) /hpf Urine HCG, Qual Not Detected (Not Detectd) C. difficile (EIA) Intrp (Negative) Disposition Clinical Impression: Gastroenteritis Disposition: HOME SELF-CARE Condition: Good Instructions (If sedation given, give patient instructions): Gastroenteritis (ED) Additional Instructions: Increase fluids. Take medications as directed. Follow-up she primary care physician for recheck in 1-2 days. Return to the emergency department immediately for any new, worsening, or concerning symptoms. Prescriptions: Diphenoxylate HCl/Atropine [Lomotil 2.5-0.025 mg Tablet] 1 - 2 tab PO QID PRN 3 Days #24 tab PRN Reason: Diarrhea Is patient prescribed a controlled substance at d/c from ED?: No Referrals: Mejia Blanc MD [Primary Care Provider] - 1-2 days Time of Disposition: 20:27
[2019-02-11 19:48] LABS: Basophils % (A) 0 %; Eosinophils # (A) 0.1 k/uL (0-0.7); Eosinophils % (A) 1 %; HCT 38.4 % (34.0-46.0); HGB 12.6 gm/dL (11.4-16.0); Lymphocytes # (A) 1.5 k/uL (1.0-4.8); Lymphocytes % (A) 21 %; MCH 30.1 pg (25.0-35.0); MCHC 32.9 g/dL (31.0-37.0); MCV 91.6 fL (80.0-100.0); Mean Platelet Volume 6.5; Monocytes # (A) 0.6 k/uL (0-1.0); Monocytes % (A) 8 %; Neutrophils # (A) 4.9 k/uL (1.3-7.7); Neutrophils % (A) 67 %; Platelet Count 256 k/uL (150-450); RBC 4.19 m/uL (3.80-5.40); RDW 12.9 % (11.5-15.5); WBC 7.3 k/uL (3.8-10.6)
[2019-02-11 19:55] LABS: Appearance,Urine Cloudy (Clear); Bacteria,Urine Occasional /hpf; Bilirubin,Urine Negative (Negative); Blood,Urine Small (Negative); Calcium Oxalate Crystals,Urine Many /hpf; Color,Urine Yellow; Glucose,Urine (UA) Negative (Negative); Hyaline Casts,Urine 3 /lpf (0-2); Ketones,Urine Negative (Negative); Leukocyte Esterase,Urine Negative (Negative); Mucus,Urine Moderate /hpf; Nitrite,Urine Negative (Negative); PH, Urine 5.5 (5.0-8.0); Protein,Urine 1+ (Negative); RBC,Urine 4 /hpf (0-5); Squamous Epithelial Cell,Urine 2 /hpf (0-4); Urobilinogen,Urine <2.0 mg/dL (<2.0)
[2019-02-11 20:04] LABS: Albumin 4.3 g/dL (3.5-5.0); Potassium 4.1 mmol/L (3.5-5.1); Total Bilirubin 0.7 mg/dL (0.2-1.3); Total Protein 7.1 g/dL (6.3-8.2)
[2019-02-11] MEDS ORDERED: DIPHENOX-ATROP STARTER PACK 8 TAB BTL PO STA (20:25)
[2019-02-11 20:28] VITALS: BP 108/60; PULSE 78; RESP 16
== END 2019-02-11 21:24 | disposition home or self-care (01) ==
LOC: EC 17:43
DX: K52.9 Noninfective gastroenteritis and colitis, unspecified (principal); I50.9 Heart failure, unspecified; G47.30 Sleep apnea, unspecified; Z79.899 Other long term (current) drug therapy; Z91.040 Latex allergy status; Z88.8 Allergy status to other drugs, medicaments and biological substances; Z96.651 Presence of right artificial knee joint
CPT/HCPCS: 36415; 80053; 81001; 81025; 82150; 83630; 83690; 85025; 87045; 87046; 87324; 96360; 96361; 99283